=== PATIENT | female | born 1970 | race Caucasian/White ===

== ENCOUNTER 2016-04-02 20:01 | Emergency (ER) | payer MEDICAID | END 2016-04-02 23:56 | disposition left against medical advice (07) | LOC: ER 20:01 | DX: Z53.21 Procedure and treatment not carried out due to patient leaving prior to being seen by health care provider (principal) ==

== ENCOUNTER 2016-04-17 17:14 | Emergency (ER) | payer MEDICAID ==
[2016-04-17] MEDS ORDERED: ONDANSETRON 4 MG VIAL ONE (22:11)
[2016-04-17] MEDS ORDERED: DILAUDID 1 MG/ML AMP ONE (22:11)
[2016-04-17] MEDS ORDERED: SODIUM CHLORIDE 0.9% 1,000 ML ONE (22:11)
[2016-04-18] MEDS ORDERED: ONDANSETRON 4 MG VIAL ONE (00:39)
[2016-04-18] MEDS ORDERED: DILAUDID 1 MG/ML AMP ONE (00:40)
== END 2016-04-18 02:27 | disposition home or self-care (01) ==
LOC: ER 17:14
DX: S32.592A Other specified fracture of left pubis, initial encounter for closed fracture (principal); S32.409A Unspecified fracture of unspecified acetabulum, initial encounter for closed fracture; S82.112A Displaced fracture of left tibial spine, initial encounter for closed fracture; V09.9XXA Pedestrian injured in unspecified transport accident, initial encounter; Y93.01 Activity, walking, marching and hiking; F17.290 Nicotine dependence, other tobacco product, uncomplicated; M32.9 Systemic lupus erythematosus, unspecified; E05.00 Thyrotoxicosis with diffuse goiter without thyrotoxic crisis or storm; M35.2 Behcet's disease; Z79.899 Other long term (current) drug therapy
CPT/HCPCS: 36415; 80053; 81001; 85025; 96361; 96374; 96375

== ENCOUNTER 2016-04-27 20:02 | Emergency (ER) | payer MEDICAID ==
[2016-04-27] MEDS ORDERED: HALOPERIDOL 5 MG/ML VIAL ONE (21:36)
[2016-04-27] MEDS ORDERED: SODIUM CHLORIDE 0.9% 1,000 ML ONE (23:38)
[2016-04-28] MEDS ORDERED: DILAUDID 1 MG/ML AMP ONE (01:12)
[2016-04-28] MEDS ORDERED: SODIUM CHLORIDE 0.9% 250 ML IV ONE (01:13)
[2016-04-28] MEDS ORDERED: LORAZEPAM 2 MG/ML VIAL ONE (01:13)
== END 2016-04-28 03:24 | disposition home or self-care (01) ==
LOC: ER 20:02
DX: R07.89 Other chest pain (principal); R51 Headache; F17.210 Nicotine dependence, cigarettes, uncomplicated
CPT/HCPCS: 36415; 70450; 71010; 80053; 82550; 83735; 84484; 85025; 85610; 85730; 93005; 96361; 96365; 96372; 96375

== ENCOUNTER 2016-04-28 10:41 | Emergency (ER) | payer MEDICAID | END 2016-04-28 13:39 | disposition home or self-care (01) | LOC: ER 10:41 | DX: B34.9 Viral infection, unspecified (principal) | CPT/HCPCS: 36415; 80053; 83880; 85025 ==